=== PATIENT | female | born 1960 | race Caucasian/White ===

== ENCOUNTER 2020-03-05 06:00 | Outpatient (CLI) | payer BC, SELFPAY | END 2020-03-05 06:01 | disposition home or self-care (01) | LOC: RADSHAW 12-29 11:54 | PROVIDERS: Family Provider Family Medicine; Visit Provider Orthopaedic Surgery | DX: M54.12 Radiculopathy, cervical region (principal) | CPT/HCPCS: 72040 ==

== ENCOUNTER → 2020-03-05 09:08 | Outpatient (BNVA) | payer BC, SELFPAY | PROVIDERS: Family Provider Family Medicine; Referring Provider Family Medicine; Visit Provider Orthopaedic Surgery | DX: M25.512 Pain in left shoulder (principal); M54.12 Radiculopathy, cervical region | CPT/HCPCS: 72040; 73030 ==

== ENCOUNTER 2021-02-25 07:47 | Outpatient (CLI) | payer BC, SELFPAY ==
--- NOTE | 2021-02-25 08:07 | MR_ITS ---
WS: [id number] MRI HEAD WITHOUT CONTRAST TECHNIQUE: Sagittal T1, T2 axial, T2 axial FLAIR, axial and coronal T1 images, axial susceptibility w eighted imaging, axial diffusion weighted images, and coronal T2 images were obtained. CLINICAL INFORMATION: CVA COMPARISON: June 23, 2010 FINDINGS: No evidence of restricted diffusion to suggest acute ischemia. Ventricular system and basal cisterns are patent. Mild small vessel changes. Mild parenchymal volume loss. Normal posterior fossa. Normal v ascular flow voids at the skull base. No extra-axial fluid collections. No evidence of mass or mass e ffect. Paranasal sinuses and mastoid air cells well aerated. Small vessel changes in the niels. Small focus of chronic hemosiderin in the right periventricular white matter consistent with cavernom a and associated venous angioma. Venous angioma better seen in 2010 on the post gadolinium imaging. N o evidence of recent hemorrhage. Normal optic chiasm and pituitary infundibulum. Normal temporal lobe s and hippocampal formations. No asymmetric atrophy. MR/MR head wo con* [id number] IMPRESSION: 1. No evidence of restricted diffusion to suggest acute ischemia. 2. Mild small vessel changes with small vessel changes in the niels. Small vess el changes slightly progressed since 2011. Mild parenchymal volume loss. 3. Temporal lobes and hippocampal formations are normal in appearance. 4. Small focus of chronic hemosiderin in the right periventricular white matte r consistent with cavernoma and associated venous angioma. Venous angioma yarely r seen in 2010 on the post gadolinium imaging. 5. No other significant findings.
== END 2021-02-25 07:48 | disposition home or self-care (01) ==
PROVIDERS: Visit Provider Family Medicine
DX: I63.9 Cerebral infarction, unspecified (principal)
CPT/HCPCS: 70551

== ENCOUNTER → 2021-10-07 14:46 | Outpatient (BNVA) | payer OTHER, SELFPAY | PROVIDERS: PCP Family Medicine; Visit Provider Family Medicine | DX: E03.9 Hypothyroidism, unspecified (principal); E78.5 Hyperlipidemia, unspecified; Z51.81 Encounter for therapeutic drug level monitoring | CPT/HCPCS: 80053; 80061; 84443 ==

== ENCOUNTER 2024-03-22 12:16 | Outpatient (CLI) | payer MEDICARE, OTHER, SELFPAY ==
--- NOTE | 2024-03-22 12:20 | MM_ITS ---
WS: [id number] BILATERAL 3D TOMOSYNTHESIS DIGITAL SCREENING MAMMOGRAPHY WITH CAD CLINICAL INFORMATION: SCREEN HISTORY: Screening mammogram. No current complaints. COMPARISON: 2014 TECHNIQUE: Bilateral CC and MLO views. FINDINGS: Scattered fibroglandular densities bilaterally Coarse calcifications anterior LEFT breast. Stable sma ll ovoid nodule anterior LEFT breast previously demonstrated to represent a cyst in 2019. New ovoid nodule anterior RIGHT breast measuring 5 mm subareolar was not present in 2019. Recommend f urther evaluation with ultrasound. MM/MM [facility] tomosynthesis [id number] IMPRESSION: DENSITY: There are scattered areas of fibroglandular density. BI-RADS: 0 - Incomplete: Need additional imaging evaluation. FOLLOW UP: Need Additional Imaging Recommend RIGHT subareolar ultrasound to evaluate the new 5 mm nodule anterior RIGHT breast
== END 2024-03-22 12:17 | disposition home or self-care (01) ==
LOC: RAD 12:17
PROVIDERS: PCP Family Medicine; Visit Provider Family Medicine
DX: Z12.31 Encounter for screening mammogram for malignant neoplasm of breast (principal); R92.323 Mammographic fibroglandular density, bilateral breasts; R92.1 Mammographic calcification found on diagnostic imaging of breast; N60.02 Solitary cyst of left breast
CPT/HCPCS: 77063; 77067

== ENCOUNTER 2024-04-20 08:26 | Outpatient (CLI) | payer MEDICARE, OTHER, SELFPAY ==
--- NOTE | 2024-04-20 09:00 | US_ITS ---
WS: [id number] ULTRASOUND BREAST RIGHT TECHNIQUE: Ultrasound right breast focused area of concern. CLINICAL INFORMATION: Abnormal mammogram COMPARISON: 03/22/2024 FINDINGS: Ultrasound subareolar RIGHT breast. In the area of concern, there is a complex cystic appearing lesio n with internal debris corresponding to the mammographic findings. This measures approximately 5 x 6 x 5 mm. This is indeterminate but probably benign. Recommend 6-month follow-up RIGHT breast diagnosti c mammography and ultrasound to confirm stability. US/US breast RT limited* [id number] IMPRESSION: BI-RADS 3 probably benign Recommend 6-month follow-up RIGHT breast diagnostic mammography and ultrasound to confirm stability.
== END 2024-04-20 08:27 | disposition home or self-care (01) ==
PROVIDERS: PCP Family Medicine; Visit Provider Family Medicine
DX: N60.01 Solitary cyst of right breast (principal)
CPT/HCPCS: 76642

== ENCOUNTER → 2024-10-02 11:57 | Outpatient (BNVA) | payer MEDICARE, OTHER, SELFPAY | PROVIDERS: PCP Family Medicine; Visit Provider Family Medicine | DX: N39.0 Urinary tract infection, site not specified (principal); R30.0 Dysuria | CPT/HCPCS: 81000; 87086 ==

== ENCOUNTER 2024-10-23 12:29 | Outpatient (CLI) | payer MEDICARE, OTHER, SELFPAY ==
--- NOTE | 2024-10-23 12:40 | US_ITS ---
WS: [id number] RIGHT 3D TOMOSYNTHESIS DIGITAL MAMMOGRAPHY WITH CAD CLINICAL INFORMATION: abnormal mammo HISTORY: 6-month follow-up COMPARISON: 2023 TECHNIQUE: 3 views of the right breast were obtained. FINDINGS: Scattered fibroglandular densities of the right breast. Stable 5 mm ovoid nodule anterior RIGHT breast subareolar. Ultrasound described below. ULTRASOUND BREAST RIGHT TECHNIQUE: Ultrasound right breast focused area of concern. CLINICAL INFORMATION: abnormal mammo FINDINGS: Ultrasound subareolar RIGHT breast. Again seen is the complex cystic lesion with internal debris measuring 5 x 6 mm. This is unchanged compared to previous. Recommend additional 6-month follow-up to confirm stability. US/US breast RT limited* [id number] IMPRESSION: DENSITY: There are scattered areas of fibroglandular density. BI-RADS: 3 - Probably Benign. FOLLOW UP: 6 Month Follow-up Recommend 6-month RIGHT breast diagnostic mammography and ultrasound to confirm stability
--- NOTE | 2024-10-23 12:45 | MM_ITS ---
WS: [id number] RIGHT 3D TOMOSYNTHESIS DIGITAL MAMMOGRAPHY WITH CAD CLINICAL INFORMATION: abnormal mammo HISTORY: 6-month follow-up COMPARISON: 2023 TECHNIQUE: 3 views of the right breast were obtained. FINDINGS: Scattered fibroglandular densities of the right breast. Stable 5 mm ovoid nodule anterior RIGHT breast subareolar. Ultrasound described below. ULTRASOUND BREAST RIGHT TECHNIQUE: Ultrasound right breast focused area of concern. CLINICAL INFORMATION: abnormal mammo FINDINGS: Ultrasound subareolar RIGHT breast. Again seen is the complex cystic lesion with internal debris measuring 5 x 6 mm. This is unchanged compared to previous. Recommend additional 6-month follow-up to confirm stability. MM/MM diag RT tomosynthesis [id number] IMPRESSION: DENSITY: There are scattered areas of fibroglandular density. BI-RADS: 3 - Probably Benign. FOLLOW UP: 6 Month Follow-up Recommend 6-month RIGHT breast diagnostic mammography and ultrasound to confirm stability
== END 2024-10-23 12:30 | disposition home or self-care (01) ==
PROVIDERS: PCP Family Medicine; Visit Provider Family Medicine
DX: R92.8 Other abnormal and inconclusive findings on diagnostic imaging of breast (principal); N64.89 Other specified disorders of breast; R92.321 Mammographic fibroglandular density, right breast; N63.41 Unspecified lump in right breast, subareolar
CPT/HCPCS: 76642; 77061; G0279

== ENCOUNTER 2024-12-27 09:32 | Outpatient (CLI) | payer MEDICARE, OTHER, SELFPAY ==
--- NOTE | 2024-12-27 09:30 | CT_ITS ---
WS: [id number] CT ABDOMEN PELVIS TECHNIQUE: Contrast-enhanced CT of the abdomen and pelvis with coronal and sagittal reformatted images. CLINICAL INFORMATION: abdominal pain. lower abd. fevers COMPARISON: None. DLP: 561.[address] scans at [facility] use at least one of these dose optimization techniques: automated exposure control; mA and/or kV adjustment per patient size (includes targeted exams where dose is matched to clinical indication); or iterative reconstruction. FINDINGS: Heterogeneously enhancing masslike lobulated thickening involving the cervix measuring approximately 4.1 x 4.9 cm suspicious for neoplasm. This involves the lower uterine segment. Associated thickening of the endometrium measuring 5 mm. The lobulated cervical mass extends eccentric to the RIGHT and abuts the sigmoid colon with loss of the normal fat plane. No induration of the sigmoid colon but a small fistulous connection not excluded. This is best seen on the sagittal imaging image 38 series 7. Slight induration about the cervix may be due to superimposed infection from obstruction. No free fluid in the pelvis. Sigmoid colon is otherwise normal with a few diverticuli. Small fibroid along the dorsal fundus. Patchy infiltrate in the RIGHT lower lobe laterally abutting the fissure suspicious for pneumonia. Recommend follow-up chest CT after treatment. Fatty liver. Normal spleen. Small splenule. Adrenal glands are normal. Normal renal parenchyma enhancement. No hydronephrosis. Small LEFT renal cyst. Tiny esophageal hiatal hernia. Normal caliber abdominal aorta. Fat-containing umbilical hernia. Normal appendix. CT/CT abdomen pelvis w con* [id number] IMPRESSION: 1. Lobulated heterogeneously enhancing mass involving the cervix extending int o the lower uterine segment described above suspicious for neoplasm. Recommend [employer] consultation. 2. Retroverted and retroflexed uterus 3. Lobulated mass involving the cervix extends eccentric to the RIGHT slightl y abutting the sigmoid colon. Loss of the normal fat plane in this area. Small fistulous connection or involvement of the sigmoid colon not excluded. See sagi ttal series 7 image 38 4. Small dorsal uterine fibroid measuring 8 mm. 5. Also consider superimposed cervicitis/endometritis from obstruction and inf ection. 6. Patchy infiltrate in the RIGHT lower lobe laterally suspicious for pneumoni a abutting the fissure with a small amount of pleural thickening. Recommend fol low-up chest CT after treatment. Notified Toño Tamez MD at 12/27/2024 12:00 PM.
[2024-12-27 10:18] LABS: Blood Urea Nitrogen 11 mg/dL (8-23)
[2024-12-27] MEDS: iohexol 350 mg/mL 500 mL Btl (per mL) IV (10:25)
== END 2024-12-27 09:33 | disposition home or self-care (01) ==
LOC: RAD 09:33
PROVIDERS: PCP Family Medicine; Visit Provider Family Medicine
DX: R10.9 Unspecified abdominal pain (principal); N85.4 Malposition of uterus; R19.09 Other intra-abdominal and pelvic swelling, mass and lump; D25.9 Leiomyoma of uterus, unspecified; R91.8 Other nonspecific abnormal finding of lung field
CPT/HCPCS: 74177; 80053; 82565; 83690; 84443; 84520; 85025; 86140